=== PATIENT | male | born 1945 | race Caucasian/White ===

== ENCOUNTER 2017-06-11 11:22 | Emergency (ER) | payer MEDICARE, OTHER ==
[2017-06-11] MEDS ORDERED: Acetaminophen 325 MG TAB ONE (12:37)
[2017-06-11 12:39] LABS: #Eosinphils 0.2 thou/uL (0.0-0.7); #Lymphocytes 1.7 thou/uL (1.20-3.40); #Monocytes 0.6 thou/uL (0.11-0.59); #Neutrophils 3.6 thou/uL (1.40-6.50); %Basophils 0.7 % (0.0-1.0); %Eosinophils 3.5 % (0.0-10.0); %Lymphocytes 26.8 % (21.0-51.0); %Monocytes 10.3 % (0.0-10.0); %Neutrophils 58.6 % (42.0-75.0); Hemoglobin 14.6 g/dL (14.0-18.0); Mean Corpuscular HGB CONC 34.6 g/dL (32.0-36.0); Mean Corpuscular Hemoglobin 31.1 pg (27.0-31.0); Mean Corpuscular Volume 89.7 fl (80.0-94.0); Platelet Count 273 thou/uL (130-400); RBC Distribution Width 11.4 % (11.5-14.5); Red Blood Cell (RBC) Count 4.72 mill/uL (4.70-6.10); White Blood Cell (WBC) Count 6.2 thou/uL (4.8-10.8)
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
[2017-06-11 12:59] LABS: ALT (SGPT) 32 U/L (8-55); AST (SGOT) 21 U/L (5-34); Alkaline Phosphatase 142 U/L (40-150); Anion Gap 11 mmol/L (10-20); BUN (Urea Nitrogen) 18 mg/dL (8.4-25.7); Bilirubin, Total 0.6 mg/dL (0.2-1.2); Calc. Creatinine Clearance 0 mL/min (70-130); Calcium 9.4 mg/dL (7.8-10.44); Carbon Dioxide 25 mmol/L (23-31); Chloride 106 mmol/L (98-107); Estimated GFR-MDRD 77; Globulin 2.8 g/dL (2.4-3.5); Glucose 94 mg/dL (83-110); Potassium 3.9 mmol/L (3.5-5.1); Protein, Total 6.8 g/dL (5.8-8.1); Sodium 138 mmol/L (136-145)
[2017-06-11] MEDS ORDERED: ISOVUE-370 76%-LOCM 1 ML ONE (13:09)
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
== END 2017-06-11 19:08 | disposition home or self-care (01) ==
LOC: ERS 11:22
DX: M54.6 Pain in thoracic spine (principal); K21.9 Gastro-esophageal reflux disease without esophagitis; N40.0 Benign prostatic hyperplasia without lower urinary tract symptoms; Z79.899 Other long term (current) drug therapy; V43.62XA Car passenger injured in collision with other type car in traffic accident, initial encounter
CPT/HCPCS: 70450; 71045; 71260; 72125; 80053; 85025; 93005; 96360

== ENCOUNTER 2017-12-08 19:56 | Emergency (ER) | payer MEDICARE, OTHER ==
[2017-12-08] MEDS ORDERED: Acetaminophen 500 MG TAB ONE (20:51)
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
== END 2017-12-08 21:42 | disposition home or self-care (01) ==
LOC: ERS 19:56
DX: M54.5 Low back pain (principal); K21.9 Gastro-esophageal reflux disease without esophagitis; Z87.442 Personal history of urinary calculi; Z79.899 Other long term (current) drug therapy; V89.2XXA Person injured in unspecified motor-vehicle accident, traffic, initial encounter
CPT/HCPCS: 72100

== ENCOUNTER 2019-05-21 12:03 | Emergency (ER) | payer MEDICARE, OTHER ==
[2019-05-21] MEDS ORDERED: Ondansetron PF 4 MG/2 ML Vial ONE (12:39)
[2019-05-21 13:03] LABS: #Monocytes 0.3 thou/uL (0.11-0.59); #Neutrophils 5.5 thou/uL (1.40-6.50); %Basophils 0.1 % (0.0-1.0); %Eosinophils 0.3 % (0.0-10.0); %Lymphocytes 15.2 % (21.0-51.0); %Monocytes 4.2 % (0.0-10.0); %Neutrophils 80.2 % (42.0-75.0); Mean Corpuscular HGB CONC 34.3 g/dL (32.0-36.0); Mean Corpuscular Hemoglobin 30.6 pg (27.0-31.0); Mean Corpuscular Volume 89.3 fL (78.0-98.0); Mean Platelet Volume 6.3 fL (7.4-10.4); Platelet Count 227 thou/uL (130-400); RBC Distribution Width 11.9 % (11.5-14.5); Red Blood Cell (RBC) Count 5.57 mill/uL (4.70-6.10); White Blood Cell (WBC) Count 6.9 thou/uL (4.8-10.8)
--- NOTE | 2019-05-21 13:14 | RAD ---
SINGLE VIEW CHEST: Date: 05/21/2019 COMPARISON: 06/11/2017. HISTORY: Nausea, vomiting, and dizziness. Abdominal pain. FINDINGS: Single view of the chest shows normal sized cardiomediastinal silhouette with atherosclerotic calcifi cations in the aorta. There is no evidence of consolidation, mass, or pleural effusion. Degenerative changes are seen in the spine. IMPRESSION: No evidence of acute cardiopulmonary disease. POS: [facility]
[2019-05-21 13:27] LABS: ALT (SGPT) 13 U/L (8-55); AST (SGOT) 17 U/L (5-34); Albumin 4.3 g/dL (3.4-4.8); Alkaline Phosphatase 83 U/L (40-110); Anion Gap 12 mmol/L (10-20); BUN (Urea Nitrogen) 12 mg/dL (8.4-25.7); Bilirubin, Total 0.8 mg/dL (0.2-1.2); CK (CPK) 214 U/L (30-200); Calc. Creatinine Clearance 0 mL/min (70-130); Calcium 10.2 mg/dL (7.8-10.44); Carbon Dioxide 28 mmol/L (23-31); Chloride 102 mmol/L (98-107); Estimated GFR-MDRD 74; Globulin 2.8 g/dL (2.4-3.5); Glucose 117 mg/dL (83-110); Lipase 31 U/L (8-78); Potassium 3.7 mmol/L (3.5-5.1); Protein, Total 7.1 g/dL (5.8-8.1); Sodium 138 mmol/L (136-145)
[2019-05-21] MEDS ORDERED: Lidocaine Viscous Sol 2% 15 ml UD Cup ONE (14:01)
[2019-05-21] MEDS ORDERED: Mag-Al 1200 mg/1200 mg/30 ML UDCUP ONE ×2 (14:01→14:03)
== END 2019-05-21 14:33 | disposition home or self-care (01) ==
LOC: ERS 12:03
DX: R11.2 Nausea with vomiting, unspecified (principal); K21.9 Gastro-esophageal reflux disease without esophagitis; Z87.442 Personal history of urinary calculi; Z79.899 Other long term (current) drug therapy
CPT/HCPCS: 71045; 80053; 82550; 83690; 84484; 85025; 93005; 96361; 96374; J2405

== ENCOUNTER 2019-08-12 08:09 | Observation (INO) | payer MEDICARE, OTHER ==
[2019-08-12 08:33] LABS: #Eosinphils 0.1 thou/uL (0.0-0.7); #Lymphocytes 2.7 thou/uL (1.20-3.40); #Monocytes 0.5 thou/uL (0.11-0.59); #Neutrophils 8.6 thou/uL (1.40-6.50); %Basophils 0.3 % (0.0-1.0); %Eosinophils 0.6 % (0.0-10.0); %Lymphocytes 22.3 % (21.0-51.0); %Monocytes 4.6 % (0.0-10.0); %Neutrophils 72.2 % (42.0-75.0); Hemoglobin 16.7 g/dL (14.0-18.0); Mean Corpuscular HGB CONC 35.6 g/dL (32.0-36.0); Mean Platelet Volume 6.8 fL (7.4-10.4); Platelet Count 203 thou/uL (130-400); Red Blood Cell (RBC) Count 5.22 mill/uL (4.70-6.10); White Blood Cell (WBC) Count 11.9 thou/uL (4.8-10.8)
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
--- NOTE | 2019-08-12 08:47 | CT ---
CT HEAD WITHOUT IV CONTRAST COMPARISON: 06/11/2017 HISTORY: Altered mental status. Dizziness and nausea. TECHNIQUE: Axial CT imaging at 5 mm intervals from vertex through skull base without contrast FINDINGS: There is decreased attenuation in the periventricular white matter which is nonspecific but likely re flective of chronic small vessel ischemic changes. There is mild cerebral volume loss. The ventricular system is normal in size, shape, and position for the degree of sulcal atrophy. There is no evidence of an acute infarction, hemorrhage, mass effect, or midline shift. Again noted is complete opacification of the right maxillary antrum as well as opacification of the r ight frontal sinus. Mucosal thickening and opacification of several ethmoidal air cells is also again seen. Mucosal thickening left maxillary antrum is seen. Opacification of the limited pneumatize d mastoid air cells on the right is also again noted. Osseous structures appear intact. IMPRESSION: 1. No acute intracranial abnormality demonstrated. 2. Chronic small vessel ischemic changes and cerebral volume loss. 3. Diffuse sinus disease with persistent opacification of limited pneumatized right mastoid air cells .
[2019-08-12 08:58] LABS: ALT (SGPT) 21 U/L (8-55); AST (SGOT) 22 U/L (5-34); Albumin 4.1 g/dL (3.4-4.8); Alkaline Phosphatase 88 U/L (40-110); Anion Gap 12 mmol/L (10-20); BUN (Urea Nitrogen) 13 mg/dL (8.4-25.7); Bilirubin, Total 0.6 mg/dL (0.2-1.2); Calc. Creatinine Clearance 0 mL/min (70-130); Calcium 9.1 mg/dL (7.8-10.44); Carbon Dioxide 23 mmol/L (23-31); Chloride 106 mmol/L (98-107); Estimated GFR-MDRD 72; Globulin 2.6 g/dL (2.4-3.5); Glucose 141 mg/dL (83-110); Lipase 34 U/L (8-78); Potassium 3.7 mmol/L (3.5-5.1); Protein, Total 6.7 g/dL (5.8-8.1); Sodium 137 mmol/L (136-145)
[2019-08-12] MEDS ORDERED: Meclizine HCl 25 MG TAB ONE (09:18)
[2019-08-12] MEDS ORDERED: Aspirin 325 MG TAB ONE (09:48)
[2019-08-12] MEDS ORDERED: Meclizine HCl 25 MG TAB PO PRN (12:05)
--- NOTE | 2019-08-12 13:47 | ULT ---
BILATERAL CAROTID DUPLEX ULTRASOUND: HISTORY: TIA TECHNIQUE: Grayscale, color-flow and spectral Doppler ultrasound imaging of the extracranial carotid artery syst ems was performed bilaterally. FINDINGS: There is plaque formation on both sides The peak systolic velocity in the right ICA measures 45 cm/s with an end-diastolic velocity of 6 cm/s and a systolic ratio of 0.42. The peak systolic velocity in the left ICA measures 64 cm/s with an end-diastolic velocity of 9 c m/s and a systolic ratio of 0.77. Flow in both vertebral arteries remains antegrade. IMPRESSION: No evidence of hemodynamically significant stenosis
[2019-08-12 14:33] VITALS: BMI 26.9
--- NOTE | 2019-08-12 16:11 | MRI ---
Exam: Brain MRI without contrast HISTORY: Transient ischemic attack. COMPARISON: None FINDINGS: Calvarial marrow signal intensity: Appropriate T1 signal Gradient echo sequence: No hemorrhage Brain parenchyma: No mass, mass effect or midline shift. Brain volume, age-appropriate. Cortical hernandez-white matter differentiation: Preserved Restricted diffusion: Central arterial flow voids are maintained. Absent restricted diffusion White matter signal intensities: T2, FLAIR white matter hyperintensities due to chronic small vessel ischemic changes Sinuses: Complete opacification the right maxillary sinus and partial opacification of the right ethm oid air cells. Complete opacification of the right frontal sinus. Mild mucosal thickening of the left paranasal sinuses. IMPRESSION: 1. Absent restricted diffusion. No acute infarct 2. Chronic small vessel ischemic changes white matter 3. Paranasal sinus disease.
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
[2019-08-13 05:33] LABS: #Eosinphils 0.1 thou/uL (0.0-0.7); #Lymphocytes 2.4 thou/uL (1.20-3.40); #Monocytes 0.6 thou/uL (0.11-0.59); #Neutrophils 5.2 thou/uL (1.40-6.50); %Basophils 0.2 % (0.0-1.0); %Eosinophils 0.9 % (0.0-10.0); %Lymphocytes 28.8 % (21.0-51.0); %Monocytes 7.7 % (0.0-10.0); %Neutrophils 62.3 % (42.0-75.0); Hemoglobin 16.3 g/dL (14.0-18.0); Mean Corpuscular HGB CONC 35.3 g/dL (32.0-36.0); Mean Corpuscular Volume 90.9 fL (78.0-98.0); Mean Platelet Volume 6.5 fL (7.4-10.4); Platelet Count 208 thou/uL (130-400); Red Blood Cell (RBC) Count 5.08 mill/uL (4.70-6.10); White Blood Cell (WBC) Count 8.3 thou/uL (4.8-10.8)
[2019-08-13 05:53] LABS: Anion Gap 10 mmol/L (10-20); BUN (Urea Nitrogen) 13 mg/dL (8.4-25.7); Calc. Creatinine Clearance 71 mL/min (70-130); Calcium 9.1 mg/dL (7.8-10.44); Carbon Dioxide 28 mmol/L (23-31); Cardiac Risk 3.8 (Less than 4.5); Chloride 103 mmol/L (98-107); Cholesterol 160 mg/dl (< 200 Desired); Estimated GFR-MDRD 65; Glucose 94 mg/dL (83-110); HDL Cholesterol 42 mg/dL (>60 Neg Risk); LDL Cholesterol, Calculated 100 mg/dL; Magnesium 2.1 mg/dL (1.6-2.6); Potassium 4.6 mmol/L (3.5-5.1); Sodium 136 mmol/L (136-145); Triglycerides 88 mg/dL (Less than 150)
--- NOTE | 2019-08-13 07:50 | PDOC.HOSPP ---
- Subjective Encounter Date: 08/13/19 Encounter Time: 10:00 Subjective: No more vertigo. Feeling well this morning. Getting EEG. - Objective Vital Signs & Weight: Vital Signs (12 hours) Temp Pulse Resp BP Pulse Ox 08/13/19 03:21 98.6 F 58 L 18 117/63 98 08/12/19 23:56 97.6 F 66 16 154/82 H 99 08/12/19 19:50 98.0 F 77 16 135/64 96 Weight Weight 188 lb I&O: 08/12/19 08/13/19 08/14/19 06:59 06:59 06:59 Intake Total 590 Balance 590 Result Diagrams: 08/13/19 05:19 08/13/19 05:19 Radiology Reviewed by me: Yes (MRI neg for stroke, chronic ischemic changes) Hospitalist ROS - Review of Systems Constitutional: denies: fever, chills Respiratory: denies: cough, shortness of breath Cardiovascular: denies: chest pain, palpitations, orthopnea Gastrointestinal: denies: nausea, vomiting, abdominal pain Neurological: denies: weakness, numbness, incoordination, change in speech, confusion, seizures - Medication Medications: Active Medications Generic Name Dose Route Start Last Admin Trade Name Freq PRN Reason Stop Dose Admin Pantoprazole Sodium 40 mg 08/12/19 11:58 08/12/19 16:37 Protonix PO 40 mg DAILY PRN Administration Dyspepsia - Exam General Appearance: NAD, awake alert ENT: moist mucosa Heart: RRR, no murmur, no gallops, no rubs Respiratory: CTAB, no wheezes, no rales, no ronchi Gastrointestinal: soft, non-tender, non-distended, normal bowel sounds Psychiatric: normal affect, normal behavior, A&O x 3 Hosp A/P (1) Vertigo Code(s): R42 - DIZZINESS AND GIDDINESS Status: Resolved (2) Confusion Code(s): R41.0 - DISORIENTATION, UNSPECIFIED Status: Resolved (3) Sinusitis Code(s): J32.9 - CHRONIC SINUSITIS, UNSPECIFIED Status: Acute (4) GERD (gastroesophageal reflux disease) Code(s): K21.9 - GASTRO-ESOPHAGEAL REFLUX DISEASE WITHOUT ESOPHAGITIS Status: Chronic (5) Glaucoma Code(s): H40.9 - UNSPECIFIED GLAUCOMA Status: Chronic (6) BPH (benign prostatic hyperplasia) Code(s): N40.0 - BENIGN PROSTATIC HYPERPLASIA WITHOUT LOWER URINRY TRACT SYMP Status: Chronic - Plan Patient with resolution of symptoms. Possible peripheral vertigo, but did have some concerning nystagmus in ER per neurology that has resolved. Possibility of TIA. Will put on ASA and statin. Patient cleared to d/c home by neurology if ECHO ok. EEG reportedly normal. MRI and carotid dopplers normal.
[2019-08-13] MEDS ORDERED: Aspirin 325 mg Enteric Coated Tablet PO SCH (09:00)
--- NOTE | 2019-08-13 11:48 | PDOC.HOSPP ---
- Subjective Encounter Date: 08/13/19 Subjective: NEUROLOGY PROGRESS NOTE Mr Pyle feels much better and vertigo is resolved. Confusion associated with vertigo also resolved. Undergoing EEG. - Objective Vital Signs & Weight: Vital Signs (12 hours) Temp Pulse Resp BP BP BP BP 08/13/19 11:29 60 20 127/71 08/13/19 08:20 97.8 F 76 20 118/58 L 121/56 L 117/61 08/13/19 03:21 98.6 F 58 L 18 117/63 08/12/19 23:56 97.6 F 66 16 154/82 H Pulse Ox 08/13/19 11:29 96 08/13/19 08:20 96 08/13/19 03:21 98 08/12/19 23:56 99 Weight Admit Weight 188 lb Weight 188 lb I&O: 08/12/19 08/13/19 08/14/19 06:59 06:59 06:59 Intake Total 590 360 Balance 590 360 Result Diagrams: 08/13/19 05:19 08/13/19 05:19 Radiology Reviewed by me: Yes EKG Reviewed by me: Yes Hospitalist ROS - Review of Systems Constitutional: denies: fever, chills, sweats, weakness, malaise, other Eyes: denies: pain, vision change, conjunctivae inflammation, eyelid inflammation, redness, other ENT: denies: ear pain, ear discharge, nose pain, nose discharge, nose congestion , mouth pain, mouth swelling, throat pain, throat swelling, other Respiratory: denies: cough, dry, shortness of breath, hemoptysis, SOB with excertion, pleuritic pain, sputum, wheezing, other Cardiovascular: denies: chest pain, palpitations, orthopnea, paroxysmal noc. dyspnea, edema, light headedness, other Gastrointestinal: denies: nausea, vomiting, abdominal pain, diarrhea, constipation, melena, hematochezia, other Genitourinary: denies: dysuria, frequency, incontinence, hematuria, retention, other Musculoskeletal: denies: neck pain, shoulder pain, arm pain, back pain, hand pain, leg pain, foot pain, other Skin: denies: rash, lesions, mitchel, bruising, other Neurological: reports: other (VERTIGO RESOLVED.) - Medication Medications: Active Medications Generic Name Dose Route Start Last Admin Trade Name Freq PRN Reason Stop Dose Admin Aspirin 325 mg 08/13/19 09:00 08/13/19 08:24 Ecotrin PO 325 mg DAILY LISSET Administration Pantoprazole Sodium 40 mg 08/12/19 11:58 08/12/19 16:37 Protonix PO 40 mg DAILY PRN Administration Dyspepsia Sodium Chloride 10 ml 08/12/19 11:57 08/13/19 08:25 Flush - Normal Saline IVF 10 ml PRN PRN Administration Saline Flush - Exam General Appearance: awake alert Eye: PERRL ENT: normocephalic atraumatic Neck: supple Heart: RRR Respiratory: CTAB Gastrointestinal: soft Extremities: no cyanosis Skin: normal turgor Neurological: cranial nerve grossly intact, normal sensation to touch, no weakness, no focal deficits, no new deficit Musculoskeletal: normal tone, normal strength, no muscle wasting Psychiatric: normal affect, normal behavior, A&O x 3, oriented to person, oriented to place, oriented to time Hosp A/P (1) TIA (transient ischemic attack) Code(s): G45.9 - TRANSIENT CEREBRAL ISCHEMIC ATTACK, UNSPECIFIED Status: Acute (2) Vertigo Code(s): R42 - DIZZINESS AND GIDDINESS Status: Acute (3) BPH (benign prostatic hyperplasia) Code(s): N40.0 - BENIGN PROSTATIC HYPERPLASIA WITHOUT LOWER URINRY TRACT SYMP Status: Chronic (4) GERD (gastroesophageal reflux disease) Code(s): K21.9 - GASTRO-ESOPHAGEAL REFLUX DISEASE WITHOUT ESOPHAGITIS Status: Chronic (5) Glaucoma Code(s): H40.9 - UNSPECIFIED GLAUCOMA Status: Chronic (6) Confusion Code(s): R41.0 - DISORIENTATION, UNSPECIFIED Status: Resolved - Plan PT/OT, out of bed/ambulate 73 year old presented with acute onset vertigo with mild confusion which are now resolved. Vertigo versus posterior circulation TIA. Nystagmus and dysmetria also resolved. Continue aspirin for secondary stroke prevention. MRI Brain reviewed which was negative for acute intracranial process. Carotid dopplers did not reveal hemodynamically significant stenosis. 2 D Echo pending. Neurochecks every 4 hours. Lipid panel within range. Recommend statin. EEG reviewed and was negative for seizure activity. Continue home medications. PT/OT Continue medical management per primary team. Plan discussed with patient and the primary attending Dr. Downing.
--- NOTE | 2019-08-13 12:43 | EEG ---
DATE OF SERVICE: 08/13/2019 ATTENDING PHYSICIAN: Sarita Barrientos MD This EEG was performed using 24-channel [email or web address] video digital EEG machine with 24 disk electrodes. This was an extended 2 hours 10 minutes of inpatient video EEG recording. Digital analysis of the EEG was done for spike and seizure detection, which revealed no abnormalities. BACKGROUND: The posterior background rhythm is 9-10 Hz. The background rhythm attenuates with eye opening and enhances with eye closure. HYPERVENTILATION: Not performed. PHOTIC STIMULATION: Bioccipital symmetrical driving responses observed. SLEEP: Drowsiness and sleep are observed. EEG DIAGNOSIS: Normal awake, drowsy, and sleep EEG. Job ID: [id number]
[2019-08-13] MEDS ORDERED: Atorvastatin Calcium 10 MG TAB PO SCH (21:00)
[2019-08-14 07:48] VITALS: BP 127/67; TEMP 97.4
[2019-08-14] MEDS ORDERED: Aspirin 81 mg Enteric Coated Tablet PO SCH (09:00)
--- NOTE | 2019-08-14 17:34 | DIS ---
DATE OF ADMISSION: 08/12/2019 DATE OF DISCHARGE: 08/14/2019 DISCHARGE DISPOSITION: Home. FOLLOWUP: Follow up with primary care physician at [facility] in 1 week. The patient was seen and examined on the day of discharge. Denies any new complaints. No new focal deficit. The patient is ambulating in the hallway. DISCHARGE MEDICATIONS: 1. Aspirin 81 mg daily. 2. Lipitor 20 mg at bedtime. 3. Meclizine as needed. 4. Omeprazole as needed. BRIEF HOSPITAL COURSE: The patient is a 73-year-old male who presented to the emergency room with dizziness. His CT scan of the brain in the emergency room was negative except for chronic ischemic small-vessel disease. He underwent an MRI of the brain that was negative for acute infarction. It showed chronic small-vessel ischemic changes. His echocardiogram showed ejection fraction of 60% to 65% with diastolic dysfunction, moderate mitral regurgitation, mild tricuspid regurgitation. He also had an EEG. The patient was evaluated by Neurology. Neurology recommended aspirin for suspected TIA. He has been cleared by Neurology for discharge. FINAL DIAGNOSES: 1. Transient ischemic attack. 2. Vertigo secondary to above improved. 3. Benign prostatic hypertrophy. 4. Gastroesophageal reflux disease. 5. Glaucoma. 6. Chronic kidney disease, stage 2. The patient understands the above plan of care. Job ID: [id number]
== END 2019-08-14 11:01 | disposition home or self-care (01) ==
LOC: ERS 08:09 → 2SE 11:40
PROVIDERS: ADMIT Psychiatry & Neurology Neurology; ATTEND Psychiatry & Neurology Neurology
DX: G45.9 Transient cerebral ischemic attack, unspecified (principal); N40.0 Benign prostatic hyperplasia without lower urinary tract symptoms; K21.9 Gastro-esophageal reflux disease without esophagitis; N18.2 Chronic kidney disease, stage 2 (mild); H40.9 Unspecified glaucoma; I08.1 Rheumatic disorders of both mitral and tricuspid valves; J32.9 Chronic sinusitis, unspecified; Z79.82 Long term (current) use of aspirin; Z79.899 Other long term (current) drug therapy
CPT/HCPCS: 36415; 70450; 70551; 71045; 80048; 80053; 80061; 82607; 82746; 83690; 83735; 84484; 85025; 93005; 93306; 93880; 95712; 95816; 95819; 95957; G0378

== ENCOUNTER 2019-09-11 11:22 | Emergency (ER) | payer OTHER ==
[2019-09-11 11:47] LABS: #Lymphocytes 1.4 thou/uL (1.20-3.40); #Monocytes 0.2 thou/uL (0.11-0.59); #Neutrophils 6.6 thou/uL (1.40-6.50); %Eosinophils 0.2 % (0.0-10.0); %Lymphocytes 16.6 % (21.0-51.0); %Monocytes 2.7 % (0.0-10.0); %Neutrophils 80.4 % (42.0-75.0); Hemoglobin 16.8 g/dL (14.0-18.0); Mean Corpuscular HGB CONC 34.1 g/dL (32.0-36.0); Mean Corpuscular Hemoglobin 30.9 pg (27.0-31.0); Mean Corpuscular Volume 90.5 fL (78.0-98.0); Mean Platelet Volume 6.5 fL (7.4-10.4); Platelet Count 226 thou/uL (130-400); RBC Distribution Width 11.9 % (11.5-14.5); Red Blood Cell (RBC) Count 5.43 mill/uL (4.70-6.10); White Blood Cell (WBC) Count 8.2 thou/uL (4.8-10.8)
[2019-09-11 12:13] LABS: ALT (SGPT) 17 U/L (8-55); AST (SGOT) 20 U/L (5-34); Albumin 4.4 g/dL (3.4-4.8); Alkaline Phosphatase 97 U/L (40-110); Anion Gap 12 mmol/L (10-20); BUN (Urea Nitrogen) 11 mg/dL (8.4-25.7); Bilirubin, Total 0.6 mg/dL (0.2-1.2); CK (CPK) 78 U/L (30-200); Calc. Creatinine Clearance 0 mL/min (70-130); Calcium 9.7 mg/dL (7.8-10.44); Carbon Dioxide 28 mmol/L (23-31); Chloride 104 mmol/L (98-107); Estimated GFR-MDRD 71; Globulin 2.6 g/dL (2.4-3.5); Glucose 118 mg/dL (83-110); Potassium 4.7 mmol/L (3.5-5.1); Sodium 139 mmol/L (136-145)
== END 2019-09-11 13:57 | disposition home or self-care (01) ==
LOC: ERS 11:22
DX: H81.399 Other peripheral vertigo, unspecified ear (principal); K21.9 Gastro-esophageal reflux disease without esophagitis; N40.0 Benign prostatic hyperplasia without lower urinary tract symptoms
CPT/HCPCS: 36415; 80053; 82550; 84484; 85025; 93005

== ENCOUNTER 2021-08-29 21:15 | Emergency (ER) | payer OTHER ==
[2021-08-29] MEDS ORDERED: Ondansetron PF 4 MG/2 ML Vial ONE ×2 (22:49)
[2021-08-29 23:11] LABS: #Lymphocytes 1.8 thou/uL (1.20-3.40); #Monocytes 0.5 thou/uL (0.11-0.59); #Neutrophils 9.2 thou/uL (1.40-6.50); %Eosinophils 0.4 % (0.0-10.0); %Lymphocytes 15.2 % (21.0-51.0); %Monocytes 4.4 % (0.0-10.0); %Neutrophils 79.9 % (42.0-75.0); Hemoglobin 15.7 g/dL (14.0-18.0); Mean Corpuscular Hemoglobin 31.2 pg (27.0-31.0); Mean Corpuscular Volume 91.8 fL (78.0-98.0); Mean Platelet Volume 6.4 fL (7.4-10.4); Platelet Count 216 thou/uL (130-400); RBC Distribution Width 12.2 % (11.5-14.5); Red Blood Cell (RBC) Count 5.04 mill/uL (4.70-6.10); White Blood Cell (WBC) Count 11.5 thou/uL (4.8-10.8)
[2021-08-29 23:32] LABS: ALT (SGPT) 13 U/L (8-55); AST (SGOT) 17 U/L (5-34); Albumin 4.4 g/dL (3.4-4.8); Alkaline Phosphatase 91 U/L (40-110); Anion Gap 17 mmol/L (10-20); BUN (Urea Nitrogen) 15 mg/dL (8.4-25.7); Bilirubin, Total 0.6 mg/dL (0.2-1.2); Calc. Creatinine Clearance 0 mL/min (70-130); Calcium 9.4 mg/dL (7.8-10.44); Carbon Dioxide 20 mmol/L (23-31); Chloride 106 mmol/L (98-107); Estimated GFR 71; Globulin 2.7 g/dL (2.4-3.5); Glucose 130 mg/dL (83-110); Lipase 33 U/L (8-78); Potassium 4.2 mmol/L (3.5-5.1); Protein, Total 7.1 g/dL (5.8-8.1); Sodium 139 mmol/L (136-145)
== END 2021-08-30 00:11 | disposition home or self-care (01) ==
LOC: ERS 21:15
DX: R42 Dizziness and giddiness (principal); R11.2 Nausea with vomiting, unspecified; K21.9 Gastro-esophageal reflux disease without esophagitis; Z79.899 Other long term (current) drug therapy
CPT/HCPCS: 80053; 83605; 83690; 84484; 85025; J2405